=== PATIENT | female | born 2005 | race Caucasian/White ===

== ENCOUNTER 2023-11-22 06:21 | Emergency (ER) | payer SELFPAY ==
[~2023-11-22] VITALS: Ht 165.1 cm; Wt 64.9 kg
[2023-11-22 06:29] VITALS: BP_SYST 121; PULSE 93; RESP 20; TEMP 98.7; O2SAT 100
[2023-11-22] MEDS: METOCLOPRAMIDE HCL 10 MG/2 ML VIAL IVP ONE (07:46)
[2023-11-22] MEDS: DIPHENHYDRAMINE INJ 50 MG/ML VIAL IVP ONE (07:46)
[2023-11-22 07:53] LABS: EOSINOPHILS # (AUTO) 0.1 K/uL (0.0-0.4); HEMOGLOBIN 12.3 g/dL (12.0-16.0); MONOCYTES # (AUTO) 0.7 K/uL (0.0-1.0)
[2023-11-22 07:56] LABS: BASOPHILS % (AUTO) 0.3 % (0.0-2.0); LYMPHOCYTES # (AUTO) 4.3 K/uL (1.0-5.5); LYMPHOCYTES % (AUTO) 44.3 % (20.5-51.5); MEAN CORPUSCULAR HEMOGLOBIN 19 pg (27-31); MEAN CORPUSCULAR HGB CONC 31 % (32-36); MEAN CORPUSCULAR VOLUME 63 fL (79.0-98.0); MONOCYTES % (AUTO) 7.5 % (1.7-9.3); NEUTROPHILS # (AUTO) 4.6 K/uL (1.8-7.7); NEUTROPHILS % (AUTO) 46.9 % (40.0-70.0); PLATELET COUNT (AUTO) 266 K/uL (130-430); RED BLOOD CELL COUNT(AUTO) 6.34 MIL/uL (4.2-6.2); RED CELL DISTRIBUTION WIDTH 15.9 % (9.0-15.0); WHITE BLOOD COUNT (AUTO) 9.7 K/uL (4.5-11.0)
[2023-11-22 08:05] LABS: BARBITURATE, URINE NEGATIVE (NEG <=200); BENZODIAZEPINE, URINE NEGATIVE (NEG <=150); CANNABINOID, URINE NEGATIVE (NEG <=50); COCAINE, URINE NEGATIVE (NEG <=150); METHAMPHETAMINES SCREEN,URINE NEGATIVE (NEG <=500); OPIATE, URINE NEGATIVE (NEG <=100); PHENCYCLIDINE SCREEN,URINE NEGATIVE (NEG <=25); UR TRICYCLIC ANTIDEPRESSANTS NEGATIVE (NEG <=300); URINE AMPHETAMINE NEGATIVE (NEG <=500); URINE METHADONE NEGATIVE (NEG <=200); URINE OXYCODONE SCREEN NEGATIVE (NEG <=100)
[2023-11-22 08:26] LABS: CALCIUM 9.2 mg/dL (8.4-11.0); CREATININE 0.84 mg/dL (0.55-1.30)
[2023-11-22] MEDS ORDERED: TRAM50TA2 PO (08:39)
[2023-11-22] MEDS ORDERED: METF-379 PO (08:39)
[2023-11-22] MEDS: INSULIN REGULAR, HUMAN 10 UNITS/0.1 ML, 3 ML VIAL SUBCUT ONE (08:58)
[2023-11-22 09:36] VITALS: BP_SYST 121; PULSE 93; RESP 20; TEMP 98.7; O2SAT 100
[2023-11-22 10:39] LABS: ANISOCYTOSIS 1+; HYPOCHROMASIA 2+; OVALOCYTES FEW
== END 2023-11-22 09:36 | disposition home or self-care (01) ==
LOC: SED 06:21
DX: R10.9 Unspecified abdominal pain (principal); R73.9 Hyperglycemia, unspecified; R45.1 Restlessness and agitation
CPT/HCPCS: 99285; 96374; 70450; 96375; 80307; 80048; 85025; 85610; 85730; 36415; 81025; 96372; 82397; J1200; J1815; J2765